=== PATIENT | female | born 1975 | race Caucasian/White ===

== ENCOUNTER 2016-06-29 14:14 | Outpatient (CLI) | payer MEDICARE, MEDICAID | END 2016-06-29 14:15 | disposition home or self-care (01) | DX: M47.892 Other spondylosis, cervical region (principal); J32.0 Chronic maxillary sinusitis ==

== ENCOUNTER 2017-01-09 13:49 | Emergency (ER) | payer MEDICARE, MEDICAID ==
[2017-01-09 14:06] VITALS: BP 119/89
[2017-01-09] MEDS ORDERED: PENICILLIN VK 250 MG TABLET PO STA (15:18)
--- NOTE | 2017-01-09 15:19 | ED Physician Documentation ---
PD HPI HEENT - Stated complaint Stated Complaint: TOOTH PX - Chief complaint Chief Complaint: Heent - History obtained from History obtained from: Patient - History of Present Illness Timing - onset: How many weeks ago (2) Timing - duration: Weeks (2) Timing - details: Gradual onset Pain level max: 8 Pain level now: 8 Location: Tooth (L upper canine) Improves: Nothing Worsens: Everything Associated symptoms: No: Fever, Congestion, Rhinorrhea, Trismus, Unable to swallow, Swollen nodes, Facial swelling, Headache Similar symptoms before: Diagnosis (dental pain) Recently seen: Not recently seen - Additional information Additional information: Patient states her normal vicodin is not helping her pain and "motrin doesn't touch it". States tried to call 1 dentist, but no call back received. Has not spoken to her PCP. Review of Systems Constitutional: denies: Fever, Chills Ears: denies: Ear pain Nose: denies: Rhinorrhea / runny nose, Congestion GI: denies: Nausea, Vomiting : denies: Now EGA Skin: denies: Rash Musculoskeletal: denies: Neck pain, Back pain Neurologic: denies: Headache PD PAST MEDICAL HISTORY - Past Medical History Past Medical History: Yes Cardiovascular: Hypertension Neuro: Other Psych: ADD/ADHD Musculoskeletal: Osteoarthritis, Fibromyalgia, Rheumatoid arthritis - Past Surgical History Past Surgical History: No - Present Medications Home Medications: Ambulatory Orders Medication Instructions Recorded Confirmed Penicillin V Potassium 500 mg PO Q6HR #40 tablet 01/09/17 - Allergies Allergies/Adverse Reactions: Allergies Allergy/AdvReac Type Severity Reaction Status Date / Time Sulfa (Sulfonamide Allergy Severe Rash Verified 01/09/17 14:07 Antibiotics) - Social History Does the pt smoke?: Yes Smoking Status: Current every day smoker Does the pt drink ETOH?: No Does the pt have substance abuse?: No - Immunizations Immunizations are current?: Yes - POLST Patient has POLST: No PD ED PE NORMAL - Vitals Vital signs reviewed: Yes - General General: Alert and oriented X 3, No acute distress - HEENT HEENT: Moist mucous membranes, Pharynx benign, Other (TTP over the L upper canine. No gingival swelling or abscess. no visible caries. ) - Neck Neck: Supple, no meningeal sign - Derm Derm: Warm and dry - Neuro Neuro: Alert and oriented X 3 - Psych Psych: Normal mood, Normal affect Results - Vitals Vitals: Vital Signs - 24 hr 01/09/17 14:03 Temperature 36.8 C Heart Rate 77 Respiratory 16 Rate Blood Pressure 119/89 H O2 Saturation 99 Oxygen O2 Source Room air PD MEDICAL DECISION MAKING - ED course Complexity details: reviewed old records, considered differential, d/w patient ED course: patient refuses dental block for pain control. States that it will "just wear off". Patient is requesting Percocet, I do not feel Percocet is warranted for her condition. She has Vicodin at home and will continue to utilize this. She was upset at not receiving Percocet and stated "I will just come back later and get it from someone else". No gingival abscess. No facial swelling or facial abscess. Patient will follow up with a dentist for further evaluation and care. This document was made in part using voice recognition software. While efforts are made to proofread this document, sound alike and grammatical errors may occur. Departure - Departure Disposition: 01 Home, Self Care Clinical Impression: Toothache Condition: Good Instructions: ED Tooth Pain Follow-Up: Terrell Jacobs DO [Primary Care Provider] - Within 1 week Prescriptions: Penicillin V Potassium 500 mg PO Q6HR #40 tablet Comments: You need to call dentists on wednesday to see if you can be seen for your tooth. Continue your vicodin at home. Discharge Date/Time: 01/09/17 15:26
[2017-01-09] MEDS ORDERED: PENICILLIN VK 250 MG TABLET PO ONE (15:26)
== END 2017-01-09 15:26 | disposition home or self-care (01) ==
LOC: ED 13:49
DX: K08.89 Other specified disorders of teeth and supporting structures (principal); I10 Essential (primary) hypertension; M06.9 Rheumatoid arthritis, unspecified; M79.7 Fibromyalgia; M19.90 Unspecified osteoarthritis, unspecified site; F17.200 Nicotine dependence, unspecified, uncomplicated
CPT/HCPCS: 99283; A9270

== ENCOUNTER 2017-04-01 16:13 | Outpatient (CLI) | payer MEDICARE, MEDICAID ==
--- NOTE | 2017-04-02 13:58 | XRAY Report ---
DATE OF SERVICE: 04/01/2017 THREE VIEW RIGHT SHOULDER: 04/01/2017 CLINICAL INDICATION: Chronic pain. FINDINGS: Internal and external rotational views and a scapular Y view of the right shoulder demonstrate no evidence of fracture or dislocation. The joint spaces are preserved. No radiopaque foreign body is seen in the soft tissues. IMPRESSION: NORMAL RIGHT SHOULDER. TD: 04/02/2017 13:57
== END 2017-04-01 16:14 | disposition home or self-care (01) ==
LOC: DI 16:13
PROVIDERS: ATTEND Family Medicine
DX: M25.511 Pain in right shoulder (principal)

== ENCOUNTER 2017-05-13 14:55 | Outpatient (CLI) | payer MEDICARE, MEDICAID ==
--- NOTE | 2017-05-13 18:38 | MRI Report ---
EXAM: RIGHT SHOULDER MRI WITHOUT CONTRAST EXAM DATE: 05/13/2017 03:48 PM. CLINICAL HISTORY: Chronic right shoulder pain with limited range of motion and clicking. COMPARISON: Right shoulder 3 views 04/01/2017. TECHNIQUE: Multiplanar, multisequence T1-weighted and fluid-sensitive sequences of the shoulder witho ut contrast. Other: None. FINDINGS: Acromioclavicular Region: The acromion is type II. Mild arthrosis acromioclavicular joint. Spurring 3 mm distal acromioclavicular joint. Cortical irregularity distal clavicle. The coracoacromial and cor acoclavicular ligaments are intact. No subacromial/subdeltoid bursal fluid. Glenohumeral Region: No subluxation. No effusion or loose bodies. The articular cartilage is unremark able. The glenohumeral ligaments and joint capsule are unremarkable. Bone Marrow: No fracture, marrow edema or bone lesions. Labrum: Possible superior labrum tear. Globular anterior superior labrum or middle glenohumeral ligam ent (image 22 series 601). Intrinsic increased signal superior labrum coronal oblique sequences. Musculature/Rotator Cuff: The infraspinatus tendon is negative for tear. Thickening and intermediate signal supraspinous tendon consistent with tendinosis. Negative for fluid signal rotator cuff tear. T he subscapularis tendon is without fluid signal defect. The rotator cuff muscles are negative for atr ophy or edema. Biceps Tendon: The long head of the biceps tendon and biceps racheal are intact. Other: The subcutaneous tissues are unremarkable. IMPRESSION: 1. Negative for rotator cuff tear. 2. Possible superior labrum tear which can be confirmed with MR arthrogram if clinically warranted. [facility] MUSCULOSKELET[facility] RADIOLOGY SECTION Referring Provider Line: [phone] SITE ID: [id number]
== END 2017-05-13 14:56 | disposition home or self-care (01) ==
LOC: DI 14:55
PROVIDERS: ATTEND Family Medicine
DX: S46.011A Strain of muscle(s) and tendon(s) of the rotator cuff of right shoulder, initial encounter (principal)

== ENCOUNTER 2018-01-02 17:14 | Emergency (ER) | payer MEDICARE, MEDICAID ==
[2018-01-02] MEDS ORDERED: KETOROLAC 60 MG/2 ML VIAL IM STA (18:30)
[2018-01-02] MEDS ORDERED: oxyCODONE/ACET 5/325 Prepack 4 PO STA (18:30)
--- NOTE | 2018-01-02 18:32 | ED Physician Documentation ---
PD HPI BACK INJURY - Stated complaint Stated Complaint: BACK PX - History obtained from History obtained from: Patient - History of Present Illness Location: Lower (She is a long history of lower back problems which were exacerbated 2 weeks ago while carrying groceries and more recently while carrying paint cans. It is in the right low back and radiates into the right leg. There is no saddle anesthesia, fevers, incontinence. She tried h ydrocodone without relief.) Review of Systems Constitutional: denies: Fever, Chills Cardiac: reports: Reviewed and negative Respiratory: reports: Reviewed and negative GI: reports: Reviewed and negative PD PAST MEDICAL HISTORY - Past Medical History Past Medical History: Yes Cardiovascular: Hypertension Psych: ADD/ADHD Musculoskeletal: Osteoarthritis, Fibromyalgia, Rheumatoid arthritis - Past Surgical History Past Surgical History: No - Present Medications Home Medications: Ambulatory Orders Medication Instructions Recorded Confirmed Atenolol [Tenormin] 25 mg PO ONCE 01/02/18 01/02/18 HYDROcod/ACETAM 5/325 [[place] 5/325] 01/02/18 Oxycodone HCl/Acetaminophen 1 - 2 each PO Q6H PRN #14 tablet 01/02/18 [Percocet 5-325 mg Tablet] predniSONE [Prednisone] 60 mg PO DAILY 5 Days #15 tablet 01/02/18 - Allergies Allergies/Adverse Reactions: Allergies Allergy/AdvReac Type Severity Reaction Status Date / Time Sulfa (Sulfonamide Allergy Severe Rash Verified 01/02/18 17:25 Antibiotics) - Social History Does the pt smoke?: No Smoking Status: Never smoker Does the pt drink ETOH?: No Does the pt have substance abuse?: No - Immunizations Immunizations are current?: Yes - POLST Patient has POLST: No PD ED PE NORMAL - Vitals Vital signs reviewed: Yes - General General: Alert and oriented X 3, No acute distress - Abdomen Abdomen: Normal bowel sounds, Soft, Non tender - Back Back: No CVA TTP, No spinal TTP - Extremities Extremities: Other (The patient has equal and normal Achilles and patellar reflexes bilaterally. Normal sensation in all areas of the legs. Patient denies saddle anesthesia. Normal strength in flexion-extension at the ankles, knees, and flexion of the hips.) - Neuro Neuro: Alert and oriented X 3, Normal speech Results - Vitals Vitals: Vital Signs - 24 hr 01/02/18 17:23 Temperature 36.7 C Heart Rate 85 Respiratory 15 Rate Blood Pressure 123/83 H O2 Saturation 98 Oxygen O2 Source Room air PD MEDICAL DECISION MAKING - ED course ED course: This patient has seemingly uncomplicated musculoskeletal back pain. The patient has no "red flags." Specifically denies IV drug use, fevers, incontinence, saddle anesthesia. Spinal epidural abscess was considered, given that the patient has no fever, is not diabetic, has no spinal tenderness, does not use IV drugs, and has no bilateral neurologic symptoms, the diagnosis of spinal epidural abscess is considered exceedingly unlikely. Departure - Departure Disposition: 01 Home, Self Care Clinical Impression: Sciatica Qualifiers: Laterality: right Qualified Code(s): M54.31 - Sciatica, right side Condition: Good Record reviewed to determine appropriate education?: Yes Instructions: ED Sciatica Prescriptions: Oxycodone HCl/Acetaminophen [Percocet 5-325 mg Tablet] 1 - 2 each PO Q6H PRN #14 tablet PRN Reason: pain predniSONE [Prednisone] 60 mg PO DAILY 5 Days #15 tablet Comments: Call your doctor to arrange a follow-up appointment, make the next available appointment. In the interim, return anytime if worse or if new symptoms develop. Do not drink or drive while taking narcotic pain medication. Note that many narcotic pain relievers also contain Tylenol/acetaminophen. Please ensure that your total dose of acetaminophen from all sources does not exceed 3 g (3000 mg) per day. You may get constipated while on this medication. Take a stool softener such as Colace twice a day while you are on it. Also add an cyhi-epn-udjuqmv laxative such as senna or MiraLAX on any day that you do not have a bowel movement. If you received a narcotic pain medication or sedative while in the emergency department, do not drive for the next 24 hours.
[2018-01-02 18:58] VITALS: BP 112/82
== END 2018-01-02 18:57 | disposition home or self-care (01) ==
LOC: ED 17:14
DX: M54.31 Sciatica, right side (principal); I10 Essential (primary) hypertension
CPT/HCPCS: 96372; 99283

== ENCOUNTER 2018-02-09 15:37 | Outpatient (CLI) | payer MEDICARE, MEDICAID ==
--- NOTE | 2018-02-10 15:46 | MRI Report ---
Reason: RIGHT L5 RADICULOPATHY Procedure Date: 02/09/2018 Accession Number: [id number] / [id number] Procedure: MRI - Lumbar Spine W/O CPT Code: FULL RESULT: EXAM: MRI LUMBAR SPINE WITHOUT CONTRAST EXAM DATE: 02/09/2018 05:06 PM. CLINICAL HISTORY: Right L5 radiculopathy. COMPARISON: None. TECHNIQUE: Multiplanar, multisequence T1-weighted and fluid-sensitive sequences of the lumbar spine from T12 to S1 without contrast. Other: None. FINDINGS: Spinal Canal: The conus terminates at T12-L1. The conus medullaris and cauda equina are unremarkable. Alignment: No scoliosis. 16.7 mm anterolisthesis secondary to bilateral L5 pars defects. Bone Marrow: Five uzn-pam-nbfvgpg lumbar vertebral bodies are assumed. Bilateral L5 pars defects without abnormal increased T2 signal. Disk Levels/Facets: T12-L1: Unremarkable. L1-L2: Unremarkable. L2-L3: Unremarkable. L3-L4: Unremarkable. L4-L5: Disk dehydration, mild broad-based disk bulge is present. Prominent facets. No central stenosis. Mild bilateral foraminal stenosis. L5-S1: Anterolisthesis as described. Moderate central stenosis. Stretching and flattening of both L5 roots as they exit through the neural foramina as a consequence of disk bulge and anterolisthesis. Severe bilateral foraminal stenosis. Musculature: Normal. No edema or fatty atrophy. Other: The partially visualized retroperitoneum is unremarkable. IMPRESSION: 1. The conus terminates at T12-L1 which is normal. No scoliosis. 2. L4-L5 shows a broad-based disk bulge and prominent facets. No central stenosis and mild bilateral foraminal stenosis. 3. L5-S1 shows 16.4 mm of anterolisthesis secondary to bilateral old pars defects. There is stretching and flattening of both L5 roots as they exit through the stenotic neural foramina as a consequence of disk bulge and listhesis. Severe bilateral foraminal stenosis. Moderate central stenosis. Comment: The following findings are so common in adults without low back pain that while we report their presence, they must be interpreted with caution and in the context of the clinical situation. (Reference Osmark et al, Spine 2001) Prevalence of findings in patients without low back pain: Disk degeneration (any evidence): 92% Disk desiccation/T2 signal loss: 83% Disk height loss: 56% Disk bulge: 64% Disk protrusion: 32% Annular tear/high intensity zone: 38% [facility]
== END 2018-02-09 15:38 | disposition home or self-care (01) ==
LOC: DI 15:37
PROVIDERS: ATTEND Family Medicine
DX: M51.16 Intervertebral disc disorders with radiculopathy, lumbar region (principal); M48.061 Spinal stenosis, lumbar region without neurogenic claudication
CPT/HCPCS: 72148

== ENCOUNTER 2018-05-06 11:17 | Outpatient (CLI) | payer MEDICARE, MEDICAID ==
--- NOTE | 2018-05-06 13:20 | XRAY Report ---
Reason: PAIN UNSPEC. JOINT, LOW BACK PAIN Procedure Date: 05/06/2018 Accession Number: [id number] / [id number] Procedure: WCP - Pelvis 1 View CPT Code: FULL RESULT: EXAM: PELVIS RADIOGRAPHY EXAM DATE: 05/06/2018 11:46 AM. CLINICAL HISTORY: Pain unspecified. Joint, low back pain. COMPARISON: None. TECHNIQUE: 1 view. FINDINGS: Bones: Normal. No fracture or bone lesion. Joints: The visualized hip joints are mildly and symmetrically narrowed. The pubis symphysis, and sacroiliac joints are preserved. No subluxation. Soft Tissues: Normal. No soft tissue swelling. IMPRESSION: Mild degenerative joint disease of the hips. [facility]
--- NOTE | 2018-05-06 13:21 | XRAY Report ---
Reason: PAIN [facility] [place] JOINT, LOW BACK PAIN Procedure Date: 05/06/2018 Accession Number: [id number] / [id number] Procedure: WCP - Hand 2 View BILAT CPT Code: FULL RESULT: EXAMS: 1. Right Hand Radiography 2. Left Hand Radiography EXAM DATE: 05/06/2018 11:46 AM. CLINICAL HISTORY: Pain. COMPARISON: None. TECHNIQUE: 2 views each hand. FINDINGS: Right: Bones: Normal. No fractures or bone lesions. Joints: Borderline ulnar negative variance. No subluxation. Soft Tissues: Normal. No soft tissue swelling. Left: Bones: Normal. No fractures or bone lesions. Joints: Borderline ulnar negative variance, no subluxation. Soft Tissues: Normal. No soft tissue swelling. IMPRESSION: Borderline ulnar negative variance bilaterally. [facility]
--- NOTE | 2018-05-06 13:48 | XRAY Report ---
Reason: PAIN UNSPEC. JOINT, LOW BACK PAIN Procedure Date: 05/06/2018 Accession Number: [id number] / [id number] Procedure: WCP - Lumbar Spine 2 View CPT Code: FULL RESULT: EXAM: LUMBOSACRAL SPINE RADIOGRAPHY EXAM DATE: 05/06/2018 11:46 AM. CLINICAL HISTORY: Low back pain. COMPARISONS: LUMBAR SPINE COMPLETE 05/24/2013 3:57 PM. TECHNIQUE: 2 views. FINDINGS: Alignment: At least 1.5 cm anterolisthesis of L5 on S1. Bones: Five lwa-rid-rsjsysq lumbar vertebral bodies are present. The bones are qualitatively osteopenic; this limits evaluation for underlying fractures or masses. Compression deformity of L5 has progressed, posterior and rightward loss of height. Disks: Disk space heights are generally maintained excepting L5-S1. Facets: Severe facet arthropathy at L5. Sacroiliac Joints: Unremarkable. Soft Tissues: Normal. The visualized bowel gas pattern is normal. IMPRESSION: Marked L5 anterolisthesis with interval increase in degenerative changes and compression deformity of the L5 vertebral body. [facility]
--- NOTE | 2018-05-06 13:49 | XRAY Report ---
Reason: PAIN UNSPEC. JOINT, LOW BACK PAIN Procedure Date: 05/06/2018 Accession Number: [id number] / [id number] Procedure: WCP - Foot 2 View BILAT CPT Code: FULL RESULT: EXAMS: 1. RIGHT FOOT RADIOGRAPHY 2. LEFT FOOT RADIOGRAPHY EXAM DATE: 05/06/2018 11:46 AM. CLINICAL HISTORY: Pain. COMPARISON: None. TECHNIQUE: 2 views each foot. FINDINGS: Right: Bones: Normal. No fractures or bone lesions. Joints: Normal. No subluxations. Soft Tissues: Normal. No soft tissue swelling. Left: Bones: Normal. No fractures or bone lesions. Joints: Normal. No subluxations. Soft Tissues: Normal. No soft tissue swelling. IMPRESSION: Normal bilateral feet radiography. [facility]
== END 2018-05-06 11:18 | disposition home or self-care (01) ==
LOC: DI.WCP 11:17
PROVIDERS: ATTEND Internal Medicine Rheumatology
DX: M16.0 Bilateral primary osteoarthritis of hip (principal); M43.8X6 Other specified deforming dorsopathies, lumbar region; M47.9 Spondylosis, unspecified; M43.17 Spondylolisthesis, lumbosacral region
CPT/HCPCS: 72100; 72170

== ENCOUNTER 2020-06-20 20:37 | Outpatient (CLI) | payer MEDICARE, MEDICAID ==
--- NOTE | 2020-06-21 12:21 | XRAY Report ---
PROCEDURE: Lumbar Spine 2 View INDICATIONS: SCIATICA, RIGHT SIDE TECHNIQUE: 2 views of the lumbar spine were acquired. COMPARISON: 05/06/2018. FINDINGS: Bones: 5 dpp-ysw-djusoca vertebrae are present. There is stable bony alignment with grade 2 anterol isthesis of L5 on S1 likely related to L5 pars defects. There are moderate degenerative changes at L5 -S1 with disc space loss, generative endplate changes, and endplate osteophyte formation. Mild-modera te facet arthropathy is unchanged. No acute vertebral body compression fractures. No suspicious bony lesions. Soft tissues: Overlying bowel gas pattern is normal. No suspicious soft tissue calcifications. IMPRESSION: Stable appearance of grade 2 anterolisthesis of L5 on S1 secondary to L5 pars defect with associated spondylitic changes. Reviewed by: Tomasz Stone MD on 06/21/2020 11:20 AM CAT Approved by: Tomasz Stone MD on 06/21/2020 11:20 AM CAT Station ID: [id number]
== END 2020-06-20 20:38 | disposition home or self-care (01) ==
LOC: DI 20:37
PROVIDERS: ATTEND Family Medicine
DX: M47.816 Spondylosis without myelopathy or radiculopathy, lumbar region (principal); M47.817 Spondylosis without myelopathy or radiculopathy, lumbosacral region; M43.17 Spondylolisthesis, lumbosacral region

== ENCOUNTER 2020-11-29 12:55 | Emergency (ER) | payer MEDICARE, MEDICAID ==
--- NOTE | 2020-11-29 13:05 | ED Physician Documentation ---
PD HPI HEADACHE - Stated complaint Stated Complaint: migraine - Chief complaint Chief Complaint: Neuro - History obtained from History obtained from: Patient - History of Present Illness Timing - onset: How many weeks ago (1) Timing - onset during: Rest, Light activity Timing - duration: Weeks (1) Timing - details: Gradual onset (She has had 1 week of a frontal headache with sinus pressure. She now has onset since yesterday of more general headache and right-sided associated with light sensitivity and nausea. Concurrently has had left lower dental pain and swelling 2.) Worst headache ever?: No: Worst headache ever? Location: Front, Right Quality: Throbbing, Aching Associated symptoms: Nausea, Vision changes (light sensitive). No: Fever, Stiff neck Improved by: Dark room. No: Meds Worsened by: Noise Contributing factors: No: Hypertension, Trauma Review of Systems Constitutional: denies: Fever, Chills Nose: denies: Rhinorrhea / runny nose, Congestion Throat: reports: Dental pain / toothache (left lower tooth). denies: Sore throat Respiratory: denies: Cough GI: reports: Nausea. denies: Abdominal Pain, Vomiting Skin: denies: Rash, Lesions Neurologic: reports: Headache. denies: Focal weakness, Numbness, Altered mental status, Head injury PD PAST MEDICAL HISTORY - Past Medical History Cardiovascular: Hypertension Neuro: Migraines Psych: ADD/ADHD Musculoskeletal: Osteoarthritis, Fibromyalgia, Rheumatoid arthritis - Past Surgical History Past Surgical History: No - Present Medications Home Medications: Ambulatory Orders Medication Instructions Recorded Confirmed HYDROcod/ACETAM 5/325 [[place] 5/325] 1 tab ORAL Q4HR 01/02/18 atenoloL [Tenormin] 25 mg PO DAILY 01/02/18 01/02/18 Ibuprofen [Motrin] 1 tablet PO Q8H PRN 11/29/20 11/29/20 Ondansetron Odt [Zofran] 4 mg TL Q6H PRN #10 tablet 11/29/20 cephALEXin [Keflex] 500 mg PO TID #20 cap 11/29/20 dexAMETHasone [Decadron] 4 mg PO DAILY #7 tablet 11/29/20 oxyCODONE [Roxicodone] 5 mg PO TID #6 tablet 11/29/20 - Allergies Allergies/Adverse Reactions: Allergies Allergy/AdvReac Type Severity Reaction Status Date / Time Sulfa (Sulfonamide Allergy Severe Rash Verified 11/29/20 13:01 Antibiotics) - Social History Does the pt smoke?: No Smoking Status: Never smoker Does the pt drink ETOH?: No Does the pt have substance abuse?: No - Immunizations Immunizations are current?: Yes - POLST Patient has POLST: No PD ED PE NORMAL - Vitals Vital signs reviewed: Yes - General General: Alert and oriented X 3, No acute distress, Well developed/nourished - HEENT HEENT: PERRL (light sensitive), EOMI, Ears normal, Pharynx benign. No: Dentition benign (caries with swelling of gum and tenderness left lower first molar. No fluctuance. ) - Neck Neck: Supple, no meningeal sign, No adenopathy - Cardiac Cardiac: RRR, No murmur - Respiratory Respiratory: Clear bilaterally - Derm Derm: Normal color, Warm and dry, No rash - Extremities Extremities: Normal ROM s pain - Neuro Neuro: Alert and oriented X 3, author agent 2-12 intact, No motor deficit, No sensory deficit, Normal speech Results - Vitals Vitals: Vital Signs - 24 hr 11/29/20 11/29/20 12:59 14:22 Temperature 36.6 C 36.8 C Heart Rate 99 83 Respiratory 16 18 Rate Blood Pressure 150/104 H 131/93 H O2 Saturation 99 97 Oxygen O2 Source Room air PD MEDICAL DECISION MAKING - ED course Complexity details: re-evaluated patient (treated for migraine with Toradol and Compazine and quite a bit improved. This si more reassuring to be migraine. ), considered differential (sounds liek some sinus pain for the week, and also has left lower dental infection. Now with couple days migraine headache. She has had these before. Does not seem meningitic and low suspicion for intracranial abscess. ), d/w patient Departure - Departure Disposition: 01 Home, Self Care Clinical Impression: Dental infection Migraine headache Qualifiers: Migraine type: unspecified Status migrainosus presence: with status migrainosus Intractability: intractable Qualified Code(s): G43.911 - Migraine, unspecified, intractable, with status migrainosus Condition: Stable Record reviewed to determine appropriate education?: Yes Instructions: ED Abscess Dental, ED Headache Migraine Follow-Up: Terrell Jacobs DO [Primary Care Provider] - Prescriptions: dexAMETHasone [Decadron] 4 mg PO DAILY #7 tablet cephALEXin [Keflex] 500 mg PO TID #20 cap oxyCODONE [Roxicodone] 5 mg PO TID #6 tablet Ondansetron Odt [Zofran] 4 mg TL Q6H PRN #10 tablet PRN Reason: Nausea / Vomiting Comments: Stay well-hydrated. Use the cephalexin antibiotic 3 times a day for a week as directed. Decadron steroid daily for the next 7 days will help both with inflammation around the tooth and sinuses but also prevent recurrent migraine. Continue with your usual medications. To that add an added pain medicine of oxycodone 3 times a day if needed for the next couple of days. Ondansetron if needed for nausea. Follow-up with dentist on the sixth as planned. I transmitted your prescription to [facility]. Discharge Date/Time: 11/29/20 14:29
[2020-11-29] MEDS ORDERED: cephALEXin 250 MG CAPSULE PO STA (13:29)
[2020-11-29] MEDS ORDERED: DEXAMETHASONE 10 MG/ML VIAL IVP STA (13:29)
[2020-11-29] MEDS ORDERED: KETOROLAC 15 MG/ML VIAL IVP STA (13:29)
[2020-11-29] MEDS ORDERED: PROCHLORPERAZINE 10 MG/2 ML VIAL IVP STA (13:29)
[2020-11-29 14:23] VITALS: BP 131/93
== END 2020-11-29 14:29 | disposition home or self-care (01) ==
LOC: ED 12:55
DX: G43.911 Migraine, unspecified, intractable, with status migrainosus (principal); K04.7 Periapical abscess without sinus; K02.9 Dental caries, unspecified; J32.9 Chronic sinusitis, unspecified; I10 Essential (primary) hypertension
CPT/HCPCS: 96374; 96375; 99283; A9270

== ENCOUNTER 2022-08-07 13:20 | Outpatient (CLI) | payer MEDICARE, MEDICAID ==
--- NOTE | 2022-08-07 15:52 | XRAY Report ---
PROCEDURE: Foot 2 View RT INDICATIONS: OTHER SPECIFIED DISORDERS OF BONE, ANKLE AND FOOT TECHNIQUE: 2 views of the foot were acquired. COMPARISON: None. FINDINGS: Bones: No fractures or dislocations. No suspicious bony lesions. Soft tissues: No suspicious soft tissue calcifications or masses. IMPRESSION: No right foot fracture or dislocation. No gross soft tissue abnormalities. Reviewed by: Addison Mcmullen MD on 08/07/2022 3:51 PM PDT Approved by: Addison Mcmullen MD on 08/07/2022 3:51 PM PDT Station ID: [id number]
== END 2022-08-07 13:21 | disposition home or self-care (01) ==
LOC: DI.N 13:20
PROVIDERS: ATTEND Family Medicine
DX: M89.8X7 Other specified disorders of bone, ankle and foot (principal)

== ENCOUNTER 2023-09-09 12:28 | Outpatient (CLI) | payer MEDICARE, MEDICAID ==
--- NOTE | 2023-09-09 17:27 | XRAY Report ---
PROCEDURE: Toe(s) 2+V LT INDICATIONS: PAIN IN LEFT FOURTH TOE TECHNIQUE: 3 views of the fourth toe(s) acquired. COMPARISON: Contralateral right foot radiographs 08/07/2022. FINDINGS: Bones: No fractures or dislocations. No suspicious bony lesions. Soft tissues: No suspicious soft tissue densities. IMPRESSION: No acute bony abnormality. Reviewed by: Eric Marquez MD on 09/09/2023 5:25 PM PDT Approved by: Eric Marquez MD on 09/09/2023 5:25 PM PDT Station ID: [id number]
== END 2023-09-09 12:29 | disposition home or self-care (01) ==
LOC: DI.N 12:28
PROVIDERS: ATTEND Family Medicine
DX: M79.675 Pain in left toe(s) (principal)
CPT/HCPCS: 73660